=== PATIENT | female | born 1940 | race Caucasian/White ===

== ENCOUNTER → 2016-11-15 | Outpatient (CLI) | payer OTHER ==
--- NOTE | 2016-11-15 13:00 | RAD ---
HISTORY: Nausea Study: Flat and upright abdomen, PA chest Comparison: None Findings: The abdominal gas pattern is nonspecific and nonobstructive. No pneumoperitoneum is identified. Calc ifications are identified in the right upper quadrant which could be renal or gallbladder in origin. No abnormal masses are identified. The chest is clear. IMPRESSION: No acute findings Calcifications the right upper quadrant which could be either within the gallbladder or the right ki dney. Reported By:
== END ==
LOC: RAD 12:30
PROVIDERS: ATTEND Obstetrics & Gynecology Obstetrics
DX: R11.0 Nausea (principal)
CPT/HCPCS: 74022

== ENCOUNTER → 2017-02-28 | Outpatient (CLI) | payer OTHER ==
--- NOTE | 2017-02-28 14:53 | MRI ---
HISTORY: Left radiculopathy Study: MRI lumbar spine without contrast Comparison: None Technique: Multiplanar multi-sequence MRI of the lumbar spine was obtained. Sagittal T1, sagittal T 2, and stir weighted images, axial T1, and axial T2 images were obtained. Findings: There is slight retrolisthesis L3 on L4. The lumbar spine demonstrates otherwise normal alignment wi th the expected signal characteristics of the bone marrow. The conus of the cord terminates normall y. T12 -- L1: There is a focal rightward disc protrusion which effaces the thecal sac. It is not signif icantly compressive. The neural foramina are patent. The joints are normal. L1 -- L2: No evidence for compressive disc disease. The neural foramina are patent. The joints are n ormal. L2 -- L3: No evidence for compressive disc disease. The neural foramina are patent. The joints are n ormal. L3 -- L4: There is slight retrolisthesis L3 on L4 which contributes along with mild disc bulging, li gamentous hypertrophy, and facet arthropathy to a moderate spinal stenosis with moderate lateral rec ess and foraminal narrowing bilaterally 's L4 -- L5: There is disc degeneration with mild disc bulging which contributes along with marked liga mentous hypertrophy and facet arthropathy to a relative spinal stenosis with significant lateral rec ess and foraminal narrowing bilaterally more prominent at at the level above and slightly more promi nent on the right than the left. L5 -- S1: There is disc degeneration. There is no compressive disc disease. Spondylitic change contr ibutes to lateral recess and foraminal narrowing bilaterally. Mild facet arthropathy is present. IMPRESSION: As above Reported By:
== END ==
LOC: RAD 10:23
PROVIDERS: ATTEND Obstetrics & Gynecology Obstetrics
DX: M51.16 Intervertebral disc disorders with radiculopathy, lumbar region (principal)
CPT/HCPCS: 72148

== ENCOUNTER → 2017-07-26 | Outpatient (CLI) | payer OTHER | LOC: LAB 12:16 | PROVIDERS: ATTEND Podiatrist | DX: M10.072 Idiopathic gout, left ankle and foot (principal) | CPT/HCPCS: 36415; 84550; 85652 ==